=== PATIENT | male | born 1970 | race Caucasian/White ===

== ENCOUNTER 2024-03-28 15:27 | Emergency (ER) | payer OTHER ==
[~2024-03-28] VITALS: Ht 185.4 cm; Wt 72.6 kg
[2024-03-28 15:31] VITALS: BP_SYST 126; PULSE 99; RESP 20; TEMP 98.1; O2SAT 98
[2024-03-28] MEDS ORDERED: IBUPROFEN 800 MG TABLET PO ONE (15:45)
[2024-03-28] MEDS: HYDROcodone/ACETAMIN 10-325 MG TAB PO ONE (15:50)
[2024-03-28] MEDS: KETOROLAC TROMETHAMINE 60 MG/2 ML VIAL IM ONE (15:53)
[2024-03-28] MEDS ORDERED: TRAM50TA2 PO (17:19)
[2024-03-28] MEDS ORDERED: IBUP-1969 PO (17:19)
[2024-03-28 17:45] VITALS: BP_SYST 122; PULSE 88; RESP 20; TEMP 98.1; O2SAT 98
== END 2024-03-28 17:45 | disposition home or self-care (01) ==
LOC: SED 15:27
DX: S60.131A Contusion of right middle finger with damage to nail, initial encounter (principal); F17.210 Nicotine dependence, cigarettes, uncomplicated; Z90.89 Acquired absence of other organs; Z79.899 Other long term (current) drug therapy; W23.0XXA Caught, crushed, jammed, or pinched between moving objects, initial encounter; Y93.89 Activity, other specified; Y92.89 Other specified places as the place of occurrence of the external cause; Y99.8 Other external cause status
CPT/HCPCS: 99283; 73140; 96372; J1885